=== PATIENT | male | born 1930 | race Caucasian/White ===

== ENCOUNTER 2016-07-11 00:11 | Emergency (ER) | payer MEDICARE, MEDICAID ==
[~2016-07-11] VITALS: Ht 162.6 cm; Wt 74.8 kg
--- NOTE | 2016-07-11 00:50 | NUR ---
PT BIB FAMILY, AMBULATORY TO ER BED 7 PER FAMILY "BP 197/90 AT HOME"; TOOK LOSARTAN AND ATENOLO AT 2130" PT AOX4 FARSI SPEAKING, FAMILY AT BEDSIDE FOR TRASNLATION. RR EVEN AND UNLABORED. NO SOB NOTED. PT DENIES CP. PT NOTED WITH AUDIBLE WHEEZING. PT CONNECTED TO MONITOR AND GOWNED. WAITING FOR MD TOMLINSON.
--- NOTE | 2016-07-11 00:57 | NUR ---
DR. HARMAN AT BEDSIDE FOR EVAL.
[2016-07-11 01:28] LABS: BASOPHILS % (AUTO) 0.4 % (0.0-2.0); EOSINOPHILS # (AUTO) 0.4 /CMM (0.0-0.7); EOSINOPHILS % (AUTO) 3.8 % (0.0-6.0); HEMATOCRIT 40 % (39-51); HEMOGLOBIN 12.9 g/dL (13.5-17.5); LYMPHOCYTES # (AUTO) 3.8 /CMM (0.8-4.8); LYMPHOCYTES % (AUTO) 33.1 % (20.0-44.0); MEAN CORPUSCULAR HEMOGLOBIN 31 PG (26.0-33.0); MEAN CORPUSCULAR HGB CONC 33 g/dl (31.0-36.0); MEAN CORPUSCULAR VOLUME 94 fL (80-96); MONOCYTES % (AUTO) 8.6 % (2.0-12.0); NEUTROPHILS # (AUTO) 6.2 /CMM (1.8-8.9); NEUTROPHILS % (AUTO) 54.1 % (43.0-81.0); PLATELET COUNT (AUTO) 195 /CMM (150-450); RDW COEFFICIENT OF VARIATION 14.7 (11.5-15.0); WHITE BLOOD COUNT (AUTO) 11.5 K/uL (4.3-11.0)
--- NOTE | 2016-07-11 01:30 | NUR ---
XRAY AT BEDSIDE FOR CXR
[2016-07-11 01:38] LABS: CALCIUM, SERUM 8.6 mg/dL (8.5-10.1); CARBON DIOXIDE 30 mmol/L (21-32); CHLORIDE 100 mmol/L (98-107); CREATININE 1.4 mg/dL (0.6-1.3); GLUCOSE 102 mg/dL (74-106); POTASSIUM 5.5 mmol/L (3.5-5.1); SODIUM SERUM 137 mmol/L (136-145); UREA NITROGEN, BLOOD 27 mg/dL (7-18)
[2016-07-11 01:41] LABS: INR 0.96 (0.87-1.13); PROTHROMBIN TIME 10.2 SECS (9.5-12.7)
[2016-07-11 01:46] LABS: TROPONIN I < 0.017 ng/mL (0.00-0.056)
[2016-07-11 01:51] LABS: ALANINE AMINOTRANSFERASE 29 U/L (12-78); ALKALINE PHOSPHATASE 73 U/L (46-116); ASPARTATE AMINOTRANSFERASE 22 U/L (15-37); B-TYPE NATRIURETIC PEPTIDE 599 PG/ML (0-125); BILIRUBIN,DIRECT 0.1 mg/dL (0.0-0.2); BILIRUBIN,TOTAL 0.4 mg/dL (0.2-1.0)
--- NOTE | 2016-07-11 02:31 | NUR ---
DR. HARMAN AT BEDSIDE SPEAKING TO PT AND FAMILY REGARDING RESULTS.
--- NOTE | 2016-07-11 02:43 | NUR ---
IV removed. Catheter intact and site benign. Pressure and 4x4 applied to site. No bleeding noted. Patient discharged to home in stable condition. Written and verbal after care instructions given. Patient verbalizes understanding of instruction. ambulatory with a steady gait with cane, pt w/c out per family request.
[2016-07-11 02:44] VITALS: BP 143/67
== END 2016-07-11 02:45 | disposition home or self-care (01) ==
LOC: ER 00:11
DX: I10 Essential (primary) hypertension (principal); R79.1 Abnormal coagulation profile
CPT/HCPCS: 36415; 71010-TC; 80048-TC; 80076-TC; 83880; 84484-TC; 85025-TC; 85730-TC; A4606; Z7610

== ENCOUNTER 2017-05-03 02:25 | Inpatient (IN) | payer MEDICARE, OTHER ==
[~2017-05-03] VITALS: Ht 160 cm; Wt 70.3 kg
--- NOTE | 2017-05-03 02:41 | NUR ---
PT BB DAUGHTER; COUGH, CONGESTION, SOB X 2 DAYS. PT AOX3 SERBIAN SPEAKING, DAUGHTER AT BEDSIDE TO TRANSLATE. NO SOB NOTED. NAD NOTED. NO NVD AT THIS TIME. PT GOWNED AND PLACED ON MONTIOR. PT DENIES CP AND IS NOT DIAPHORETIC. DR. HARDIN AT BEDSIDE FOREVAL.
[2017-05-03] MEDS ORDERED: IPRATROPIUM NEB FS 0.5 MG/2.5 ML AMPUL.NEB NEB ONE (03:00)
[2017-05-03] MEDS ORDERED: ASPIRIN 81 MG TAB.CHEW PO ONE (03:00)
[2017-05-03] MEDS ORDERED: ALBUTEROL FS 2.5 MG/0.5 ML VIAL.NEB NEB ONE (03:00)
[2017-05-03 03:11] LABS: BASOPHILS % (AUTO) 0.4 % (0.0-2.0); EOSINOPHILS # (AUTO) 0.1 /CMM (0.0-0.7); EOSINOPHILS % (AUTO) 0.7 % (0.0-6.0); HEMATOCRIT 39 % (39-51); HEMOGLOBIN 12.9 g/dL (13.5-17.5); LYMPHOCYTES # (AUTO) 2.1 /CMM (0.8-4.8); LYMPHOCYTES % (AUTO) 22.3 % (20.0-44.0); MEAN CORPUSCULAR HEMOGLOBIN 32 PG (26.0-33.0); MEAN CORPUSCULAR HGB CONC 33 g/dl (31.0-36.0); MEAN CORPUSCULAR VOLUME 95 fL (80-96); MONOCYTES # (AUTO) 1.7 /CMM (0.1-1.30); MONOCYTES % (AUTO) 17.8 % (2.0-12.0); NEUTROPHILS # (AUTO) 5.6 /CMM (1.8-8.9); NEUTROPHILS % (AUTO) 58.8 % (43.0-81.0); PLATELET COUNT (AUTO) 157 /CMM (150-450); RDW COEFFICIENT OF VARIATION 13.8 (11.5-15.0); RED BLOOD CELL COUNT(AUTO) 4.08 MIL/uL (4.5-6.0); WHITE BLOOD COUNT (AUTO) 9.6 K/uL (4.3-11.0)
[2017-05-03] MEDS ORDERED: ASPIRIN 81 MG TAB.CHEW ONE (03:15)
--- NOTE | 2017-05-03 03:17 | NUR ---
CALLED FOR BREATHING TX.
[2017-05-03 03:22] LABS: CALCIUM, SERUM 8.4 mg/dL (8.5-10.1); CARBON DIOXIDE 27 mmol/L (21-32); CHLORIDE 96 mmol/L (98-107); CREATININE 1.5 mg/dL (0.6-1.3); GLUCOSE 99 mg/dL (74-106); POTASSIUM 4.5 mmol/L (3.5-5.1); SODIUM SERUM 132 mmol/L (136-145); UREA NITROGEN, BLOOD 23 mg/dL (7-18)
[2017-05-03] MEDS ORDERED: ALBUTEROL FS 2.5 MG/0.5 ML VIAL.NEB ONE (03:22)
[2017-05-03] MEDS ORDERED: IPRATROPIUM NEB FS 0.5 MG/2.5 ML AMPUL.NEB ONE (03:22)
--- NOTE | 2017-05-03 03:27 | NUR ---
RT AT BEDSIDE FOR BREATHING TX.
[2017-05-03 03:29] LABS: TROPONIN I < 0.017 ng/mL (0.00-0.056)
[2017-05-03 03:37] LABS: ALANINE AMINOTRANSFERASE 26 U/L (12-78); ALBUMIN 3.8 g/dL (3.4-5.0); ALKALINE PHOSPHATASE 58 U/L (46-116); ASPARTATE AMINOTRANSFERASE 18 U/L (15-37); B-TYPE NATRIURETIC PEPTIDE 946 PG/ML (0-125); BILIRUBIN,DIRECT 0.1 mg/dL (0.0-0.2); BILIRUBIN,TOTAL 0.3 mg/dL (0.2-1.0); EOSINOPHILS % (MANUAL) 2 % (0-4); LYMPHOCYTES % (MANUAL) 26 % (16-48); MONOCYTES % (MANUAL) 14 % (0-11.0); NEUTROPHILS % (MANUAL) 58 (42-76); TOTAL PROTEIN, SERUM 8.1 g/dL (6.4-8.2)
--- NOTE | 2017-05-03 03:56 | NUR ---
URINE COLLECTED. CALLED LAB FOR NON DESTRUCTIVE TESTER
[2017-05-03] MEDS ORDERED: FUROSEMIDE 40 MG/4 ML VIAL ONE (03:57)
[2017-05-03] MEDS ORDERED: FUROSEMIDE 40 MG/4 ML VIAL IV ONE (04:00)
[2017-05-03 04:02] LABS: APPEARANCE,URINE CLEAR (CLEAR); BILIRUBIN,URINE NEGATIVE (NEGATIVE); BLOOD, URINE 1+ Ery/uL (NEGATIVE); COLOR,URINE YELLOW (YELLOW); KETONES,URINE NEGATIVE (NEGATIVE); LEUKOCYTE ESTERASE ,URINE NEGATIVE (NEGATIVE); NITRITE, URINE NEGATIVE (NEGATIVE); PH,URINE 5.5 (5.0-8.0); PROTEIN,URINE NEGATIVE (NEGATIVE); UGLUCOSE NEGATIVE (NEGATIVE); UROBILINOGEN,URINE 0.2 EU/dL (0.2)
[2017-05-03 04:12] LABS: BACTERIA,URINE None seen /HPF (None Seen); SQUAMOUS EPITHELIAL CELL,UR Rare /HPF (None Seen); WBC,URINE 0-2 /HPF (0-3)
[2017-05-03] MEDS ORDERED: IPRATROPIUM NEB FS 0.5 MG/2.5 ML AMPUL.NEB NEB PRN (04:30)
[2017-05-03] MEDS ORDERED: ALBUTEROL FS 2.5 MG/0.5 ML VIAL.NEB NEB PRN (04:30)
[2017-05-03] MEDS ORDERED: hydrALAZINE HCL IV 20 MG VIAL IV PRN (04:30)
[2017-05-03] MEDS ORDERED: IV NS 0.9% 1,000 ML IV PRN (04:30)
--- NOTE | 2017-05-03 04:38 | NUR ---
PT ASSIGNED TO [facility] BED 111-2
--- NOTE | 2017-05-03 04:46 | NUR ---
REPORT GIVEN TO KOSTAS MCMAHON FOR BED 111-2
[2017-05-03] MEDS ORDERED: ONDANSETRON HCL/PF 4 MG/2 ML VIAL IVP PRN (05:00)
[2017-05-03] MEDS ORDERED: MAGNESIUM HYDROXIDE 30 ML UDC PO PRN (05:00)
[2017-05-03] MEDS ORDERED: ZOLPIDEM TARTRATE 5 MG TABLET PO PRN (05:00)
[2017-05-03] MEDS ORDERED: HYDROCODONE/APAP 5/325MG 1 EACH TABLET PO PRN (05:00)
[2017-05-03] MEDS ORDERED: Z GUARD REMEDY 2 OZ OINT TP PRN (05:00)
--- NOTE | 2017-05-03 05:17 | NUR ---
PT TRANSFERRED PER ACLS PROTOCOL.
--- NOTE | 2017-05-03 05:30 | NUR ---
PACKING HOUSE SUPERVISOR TELE NOTES, VS 98.8, 78, 22, 116/62, 0/10, 94% 2 2LPM VIA NC.
--- NOTE | 2017-05-03 05:30 | NUR ---
SCALE TECHNICIAN ADMISSION NOTES, RECEIVED PATIENT FROM ER DEPARTMENT VIA STRETCHER ACCOMPANIED BY 2 STAFF, BREATHING EVEN AND UNLABORED, NO S/S OF ACUTE DISTRESS OR DISCOMFORT NOTED AT THIS TIME, ON 2LPM VIA NC SATURATION LEVEL AT 94%, SR IN THE TELE MONITOR, UNDER THE [facility] OF [facility], ADMITTING DIAGNOSES IS CHF, H/O HTN, LEFT THIGH BYPASS, HDL, ABDOMEN SOFT AND NONDISTENDED, AMBULATORY WITH ASSISTANCE, AFEBRILE AT THIS TIME, CONTINENT OF B&B, ALL MEDICATIONS WILL ADMINISTER ORDERED, BED BAD GIVEN UPON ADMISSIONS, SKIN INTACT, REFER TO PICTURES FOR DETAILS, ALL NEEDS PROVIDED, DAUGHTER AND GRAND DAUGHTER AT BEDSIDE, BED LOCKED AND IN LOWEST POSITION, CALL LIGHT W/I REACH, ORIENTED TO ROOM AND CALL LIGHT, WILL CONTINUE TO MONITOR AND ENDORSE CONTINUITY OF CARE TO ONCOMING NURSE.
--- NOTE | 2017-05-03 07:44 | NUR ---
LICENSE ISSUER NOTES RECEIVED PT ON BED SLEEPING. EPISODES OF CONFUSION TRYING TO GET OUT OF BED. ON NASAL CANNULA 2LPM SATURATING WELL. IV ACCESS ON LAC RUNNING WELL. HEAD OF BED ELEVATED. BED ALARM ON. SIDE RAILS UP. CALL LIGHT WITHIN REACH. WILL CONTINUE TO MONITOR PT CLOSELY.
[2017-05-03 08:00] VITALS: BP 134/62
[2017-05-03 08:09] LABS: BASOPHILS % (AUTO) 0.4 % (0.0-2.0); EOSINOPHILS % (AUTO) 0.2 % (0.0-6.0); HEMATOCRIT 37 % (39-51); HEMOGLOBIN 12.5 g/dL (13.5-17.5); LYMPHOCYTES # (AUTO) 2.1 /CMM (0.8-4.8); LYMPHOCYTES % (AUTO) 22.5 % (20.0-44.0); MEAN CORPUSCULAR HEMOGLOBIN 32 PG (26.0-33.0); MEAN CORPUSCULAR HGB CONC 34 g/dl (31.0-36.0); MEAN CORPUSCULAR VOLUME 94 fL (80-96); MONOCYTES # (AUTO) 1.8 /CMM (0.1-1.30); MONOCYTES % (AUTO) 18.9 % (2.0-12.0); NEUTROPHILS # (AUTO) 5.4 /CMM (1.8-8.9); PLATELET COUNT (AUTO) 138 /CMM (150-450); RDW COEFFICIENT OF VARIATION 13.9 (11.5-15.0); RED BLOOD CELL COUNT(AUTO) 3.89 MIL/uL (4.5-6.0); WHITE BLOOD COUNT (AUTO) 9.3 K/uL (4.3-11.0)
[2017-05-03 08:26] LABS: CALCIUM, SERUM 8.4 mg/dL (8.5-10.1); CARBON DIOXIDE 28 mmol/L (21-32); CHLORIDE 96 mmol/L (98-107); CHOLESTEROL 80 mg/dL (<200); CREATININE 1.5 mg/dL (0.6-1.3); GLUCOSE 96 mg/dL (74-106); HDL CHOLESTEROL 48 mg/dL (40-60); LDL 30 mg/dL (0-99); MAGNESIUM 1.9 mg/dL (1.8-2.4); SODIUM SERUM 133 mmol/L (136-145); TRIGLYCERIDES 44 mg/dL (30-150); UREA NITROGEN, BLOOD 23 mg/dL (7-18)
[2017-05-03] MEDS: AZITHROMYCIN 500 MG in IV D5W 250 ML IV SCH (08:52)
[2017-05-03] MEDS: HEPARIN SODIUM, PORCINE 5000 UNITS/1 ML VIAL SQ SCH ×2 (08:53→20:39)
[2017-05-03] MEDS: ACETAMINOPHEN 325 MG TABLET PO PRN ×3 (11:52→23:55)
[2017-05-03 12:00] VITALS: BP 137/68
[2017-05-03 12:37] LABS: BAND % (MANUAL) 4 % (0.0-5.0); LYMPHOCYTES % (MANUAL) 17 % (16-48); MONOCYTES % (MANUAL) 13 % (0-11.0); NEUTROPHILS % (MANUAL) 66 (42-76)
[2017-05-03] MEDS ORDERED: GABA-534 PO (13:29)
[2017-05-03] MEDS ORDERED: ATEN25TA PO (13:29)
[2017-05-03] MEDS ORDERED: ASPI-1152 PO (13:29)
[2017-05-03] MEDS ORDERED: ROSU20TA PO (13:29)
[2017-05-03] MEDS ORDERED: EZET10TA14 PO (13:29)
[2017-05-03] MEDS ORDERED: LOSA50TA21 PO (13:29)
[2017-05-03] MEDS ORDERED: FURO20TA4 PO (13:29)
[2017-05-03 16:00] VITALS: BP 116/60
--- NOTE | 2017-05-03 17:25 | NUR ---
STEM ROLLER NOTES PT AFIB 120S. DOCTOR IRA NOTIFIED.
[2017-05-03] MEDS: FUROSEMIDE 40 MG/4 ML VIAL IV SCH (17:32)
[2017-05-03] MEDS: CEFTRIAXONE 1 G in IV D5W 50 ML IV SCH (17:33)
--- NOTE | 2017-05-03 19:16 | NUR ---
RN NOTES RECEIVED ENDORSEMENT FROM NURSE SCHNEIDER REGARDING STAT EKG, ORDERED SINCE 5PM, STILL NOT DONE. CALLED RESPIRATORY DEPARTMENT TO FOLLOW UP. PER RT DEPARTMENT, DAVID WILL BE NOTIFIED IMMEDIATELY REGARDING EKG ORDER,
--- NOTE | 2017-05-03 19:45 | NUR ---
DATA ADMINISTRATOR NOTES ENDORSE TO ZURDO KENYON. PT ON AFIB 120S DR HAMLIN. MADE AWARE OF IT. PT VITAL SIGNS STABLE, PT SATURATING WELL ON NASAL CANNULA. DUE MEDS GIVEN. HEAD OF BED ELEVATED. SIDE RAILS UP. CALL LIGHT WITHIN REACH. BED ALARM ON. DAUGHTER AT BEDSIDE.
[2017-05-03 20:00] VITALS: BP 100/64
--- NOTE | 2017-05-03 20:15 | NUR ---
RN NOTES EKG DONE, SHOWING AFIB WITH RVR, HR 120s. RESULTS RELAYED TO HERB RUSSELL, WITH ORDER TO CONTINUE HOME MEDICATION ATENOLOL 25MG PO, AND NOTIFY IF HR INCREASES. WILL ADMINISTER PRESCRIBED MEDICATION AND CONTINUE TO CLOSELY MONITOR
[2017-05-03] MEDS: ATENOLOL 25 MG TABLET PO SCH (20:38)
[2017-05-04] VITALS: BP 126/73
--- NOTE | 2017-05-04 | NUR ---
RN NOTES PATIENT SLEEPING IN BED, APPEARS COMFORTABLE. ON PIGMENT GRINDER, STILL READING AFIB, BUT RATE IS CONTROLLED, 80s AT THIS TIME. WILL CONTINUE TO CLOSELY MONITOR
[2017-05-04 04:00] VITALS: BP 101/65
[2017-05-04] MEDS: AZITHROMYCIN 500 MG in IV D5W 250 ML IV SCH (05:43)
--- NOTE | 2017-05-04 07:05 | NUR ---
RN CLOSING NOTES PATIENT RESTING IN BED APPEARS COMFORTABLE. REMAINS AFIB ON DECORATOR CONSULTANT. WILL ENDORSE THE PATIENT TO THE AM SHIFT NURSE FOR CONTINUITY OF CARE
[2017-05-04 08:00] VITALS: BP 93/55
--- NOTE | 2017-05-04 08:00 | NUR ---
FIRE ALARM INSTALLER NOTES RECEIVED PATIENT IN BED SLEEPING, BUT EASILY AROUSED, HE IS ABLE TO MAKE THINGS KNOWN IN HIS [place] LANGUAGE (FARSI) BUT UNDERSTANDS A LITTLE MALTESE WITH EPISODES OF CONFUSION. BREATHING EVEN AND NONLABORED ON 2LPM VIA NC. LEADS INTACT WITH A-FIB 84s. IV SITE INTACT AND PATENT, HEAD OF BED ELEVATED FOR COMFORT. BED ALARM, SIDE RAILS UP AND BED LOCKED. PLACED CALL LIGHT WITHIN REACH. WILL CONTINUE TO MONITOR PATIENT CLOSELY.
[2017-05-04] MEDS: ATENOLOL 25 MG TABLET PO SCH (08:40)
[2017-05-04] MEDS: HEPARIN SODIUM, PORCINE 5000 UNITS/1 ML VIAL SQ SCH (08:42)
[2017-05-04] MEDS: FUROSEMIDE 40 MG/4 ML VIAL IV SCH (08:42)
[2017-05-04 12:00] VITALS: BP 90/55
--- NOTE | 2017-05-04 12:00 | NUR ---
RN NOTES PT STABLE, SUPPORTIVE FAMILY AT THE BEDSIDE, CONTINUE TO MONITOR .
[2017-05-04] MEDS: OSELTAMIVIR PHOSPHATE 75 MG CAPSULE PO SCH (15:07)
[2017-05-04 16:00] VITALS: BP 96/50
[2017-05-04] MEDS: CEFTRIAXONE 1 G in IV D5W 50 ML IV SCH (16:05)
[2017-05-04] MEDS: LACTOBACILLUS RHAMNOSUS GG 1 EACH CAP.SPRINK PO SCH (16:05)
[2017-05-04] MEDS: RIVAROXABAN 15 MG TABLET PO SCH (16:05)
--- NOTE | 2017-05-04 17:32 | NUR ---
RN NOTE CALLED EPIC TO CONNECT WITH MD REGARDING MED RECON ON PATIENT. BUSINESS STRATEGIST ELMER STATED HE PAGED THE MD AND WILL HAVE MD CALL BACK.
--- NOTE | 2017-05-04 18:00 | NUR ---
RN NOTES PT REMAINS THE SAME, ON 2L O2 N/C , RESPIRATION EVEN AND UNLABORED, NO SOB NOTED, SR UP x3, CALL LIGHT WITHIN EASY REACH, BED LOCKED AND IN LOWEST POSITION ,WILL ENDORSE TO MECHANICAL RELIABILITY ENGINEER NURSE FOR MAKAYLA
[2017-05-04 20:00] VITALS: BP 98/55
[2017-05-04] MEDS: METOPROLOL TARTRATE 25 MG TABLET PO SCH (21:00)
[2017-05-05] VITALS (7 sets, daily range): BP systolic 96–119; BP diastolic 60–68
[2017-05-05] MEDS: ACETAMINOPHEN 325 MG TABLET PO PRN (05:02)
[2017-05-05] MEDS: AZITHROMYCIN 250 MG TABLET PO SCH (05:02)
[2017-05-05 06:21] LABS: BASOPHILS % (AUTO) 0.3 % (0.0-2.0); EOSINOPHILS % (AUTO) 0.1 % (0.0-6.0); HEMATOCRIT 40 % (39-51); HEMOGLOBIN 13.5 g/dL (13.5-17.5); LYMPHOCYTES # (AUTO) 3.6 /CMM (0.8-4.8); LYMPHOCYTES % (AUTO) 36.7 % (20.0-44.0); MEAN CORPUSCULAR HEMOGLOBIN 32 PG (26.0-33.0); MEAN CORPUSCULAR HGB CONC 34 g/dl (31.0-36.0); MEAN CORPUSCULAR VOLUME 95 fL (80-96); MONOCYTES # (AUTO) 1.3 /CMM (0.1-1.30); MONOCYTES % (AUTO) 13.5 % (2.0-12.0); NEUTROPHILS # (AUTO) 4.8 /CMM (1.8-8.9); NEUTROPHILS % (AUTO) 49.4 % (43.0-81.0); PLATELET COUNT (AUTO) 150 /CMM (150-450); RDW COEFFICIENT OF VARIATION 14.5 (11.5-15.0); RED BLOOD CELL COUNT(AUTO) 4.18 MIL/uL (4.5-6.0); WHITE BLOOD COUNT (AUTO) 9.7 K/uL (4.3-11.0)
[2017-05-05 06:37] LABS: ALANINE AMINOTRANSFERASE 27 U/L (12-78); ALKALINE PHOSPHATASE 46 U/L (46-116); ASPARTATE AMINOTRANSFERASE 24 U/L (15-37); BILIRUBIN,TOTAL 0.2 mg/dL (0.2-1.0); CALCIUM, SERUM 8.6 mg/dL (8.5-10.1); CARBON DIOXIDE 28 mmol/L (21-32); CHLORIDE 100 mmol/L (98-107); CREATININE 1.9 mg/dL (0.6-1.3); GLUCOSE 99 mg/dL (74-106); MAGNESIUM 2.4 mg/dL (1.8-2.4); PHOSPHORUS 5.3 mg/dL (2.5-4.9); POTASSIUM 3.9 mmol/L (3.5-5.1); SODIUM SERUM 138 mmol/L (136-145); TOTAL PROTEIN, SERUM 7.4 g/dL (6.4-8.2); UREA NITROGEN, BLOOD 56 mg/dL (7-18)
--- NOTE | 2017-05-05 07:12 | NUR ---
RN INITIAL NOTES: REC'D PT AWAKE ON BED, A/O X 3, FARSI SPEAKING. ON O2 AT 2LPM/NC, NO SOB. ON TELEMONITOR, AFIB CONTROLLED. HAS L AC G18, SL, FLUSHING WELL, PATENT & INTACT W/ NO S/SX OF INFECTION/INFILTRATION NOTED. PROVIDED COMFORT & SAFETY MEASURES. BED KEPT LOW & IN LOCKED POS. CALL LIGHT PLACED W/IN REACH. WILL CONTINUE TO MONITOR & ATTEND PT NEEDS.
[2017-05-05] MEDS: LACTOBACILLUS RHAMNOSUS GG 1 EACH CAP.SPRINK PO SCH ×2 (08:45→17:26)
[2017-05-05] MEDS: OSELTAMIVIR PHOSPHATE 75 MG CAPSULE PO SCH ×2 (08:46→17:26)
[2017-05-05] MEDS: METOPROLOL TARTRATE 25 MG TABLET PO SCH ×2 (08:47→20:53)
[2017-05-05] MEDS: CARBIDOPA/LEVODOPA 25/100 MG 1 UDTAB PO SCH ×2 (13:31→17:26)
[2017-05-05] MEDS: CEFTRIAXONE 1 G in IV D5W 50 ML IV SCH (17:26)
[2017-05-05] MEDS: RIVAROXABAN 15 MG TABLET PO SCH (17:26)
--- NOTE | 2017-05-05 19:00 | NUR ---
RN INITIAL NOTES: NO ACUTE CHANGES NOTED W/IN SHIFT. PT TOLERATED O2 AT 2LPM/NC, NO SOB. REMOVED FROM TELEMONITORING ORDERED. NEW IV LINE ON R HAND INSERTED G22, SL, FLUSHING WELL, W/ GOO VENOUS RETURN. KEPT WELL RESTED. NEEDS ATTENDED. BED KEPT LOW & IN LOCKED POS. ISOLATION PREC OBSERVED. CALL LIGHT PLACED W/IN REACH. ENDORSED TO PM RN FOR MAKAYLA.
[2017-05-06 04:00] VITALS: BP 121/82
[2017-05-06] MEDS: AZITHROMYCIN 250 MG TABLET PO SCH (05:11)
[2017-05-06 08:00] VITALS: BP 129/69
[2017-05-06] MEDS: LACTOBACILLUS RHAMNOSUS GG 1 EACH CAP.SPRINK PO SCH (09:03)
[2017-05-06] MEDS: CARBIDOPA/LEVODOPA 25/100 MG 1 UDTAB PO SCH ×2 (09:03→13:40)
[2017-05-06 09:04] VITALS: BP 129/69
[2017-05-06] MEDS: METOPROLOL TARTRATE 25 MG TABLET PO SCH (09:04)
[2017-05-06 09:16] LABS: ALANINE AMINOTRANSFERASE 36 U/L (12-78); ALKALINE PHOSPHATASE 50 U/L (46-116); ASPARTATE AMINOTRANSFERASE 48 U/L (15-37); BILIRUBIN,TOTAL 0.3 mg/dL (0.2-1.0); CALCIUM, SERUM 8.6 mg/dL (8.5-10.1); CARBON DIOXIDE 29 mmol/L (21-32); CHLORIDE 99 mmol/L (98-107); CREATININE 1.7 mg/dL (0.6-1.3); GLUCOSE 106 mg/dL (74-106); MAGNESIUM 2.4 mg/dL (1.8-2.4); PHOSPHORUS 3.7 mg/dL (2.5-4.9); POTASSIUM 3.8 mmol/L (3.5-5.1); SODIUM SERUM 138 mmol/L (136-145); TOTAL PROTEIN, SERUM 7.9 g/dL (6.4-8.2); UREA NITROGEN, BLOOD 52 mg/dL (7-18)
[2017-05-06 09:24] LABS: BASOPHILS % (AUTO) 0.2 % (0.0-2.0); EOSINOPHILS # (AUTO) 0.1 /CMM (0.0-0.7); EOSINOPHILS % (AUTO) 0.6 % (0.0-6.0); HEMATOCRIT 42 % (39-51); HEMOGLOBIN 14.2 g/dL (13.5-17.5); LYMPHOCYTES # (AUTO) 4.2 /CMM (0.8-4.8); LYMPHOCYTES % (AUTO) 46.2 % (20.0-44.0); MEAN CORPUSCULAR HEMOGLOBIN 32 PG (26.0-33.0); MEAN CORPUSCULAR HGB CONC 34 g/dl (31.0-36.0); MEAN CORPUSCULAR VOLUME 95 fL (80-96); MONOCYTES # (AUTO) 1.3 /CMM (0.1-1.30); MONOCYTES % (AUTO) 14.2 % (2.0-12.0); NEUTROPHILS # (AUTO) 3.5 /CMM (1.8-8.9); NEUTROPHILS % (AUTO) 38.8 % (43.0-81.0); PLATELET COUNT (AUTO) 169 /CMM (150-450); RDW COEFFICIENT OF VARIATION 14.4 (11.5-15.0); RED BLOOD CELL COUNT(AUTO) 4.44 MIL/uL (4.5-6.0)
[2017-05-06] MEDS: OSELTAMIVIR PHOSPHATE 75 MG CAPSULE PO SCH (10:21)
--- NOTE | 2017-05-06 10:24 | NUR ---
RN NOTES: TAMIFLU ADMINISTERED NOW. UNABLE TO SCAN EARLIER. RACHELLE FROM PHARMACY NOTIFIED
--- NOTE | 2017-05-06 14:44 | NUR ---
RN NOTES: PER DR ROTH. PATIENT TO BE DISCHARGED TODAY TO [facility]
--- NOTE | 2017-05-06 17:10 | NUR ---
RN NOTES: PATIENT DISCHARGED TO [facility] PER DR ROTH'S ORDERS. PATIENT STABLE. VS WNL. NO SIGNS OF DISTRESS. DENIED DIFFICULTY BREATHING AND DENIED CHEST PAIN. PATIENT ON 2 L NASAL CANNULA. TOLERATING WELL. PATIENT REMOVED IV SITE DURING AM ROUNDS. ANOTHER ONE WAS RESTARTED ON RIGHT AC. IV REMOVED BY MYSELF PRIOR TO DISCHARGE. PATIENT WAS KEPT SAFE WITH ALL SAFETY PRECUATIONS. PATIENT WAS KEPT CLEAN AND DRY. VOIDED X3, 1 BM. PATIENT REFUSED SKIN PICTURES, AGREED ONLY TO HEEL PICTURES. TAKEN AND PLACED IN CHART. FAMILY MEMBERS AWARE OF DISCAHRGE. SPOKE TO IVAN AND GAVE HER REPORT. NO BELONGINGS WERE WITH PATIENT. PATIENT LEFT VIA AMBULANCE STABLE
== END 2017-05-06 17:22 | DRG 193 ==
LOC: ER 02:28 → TELE1 05:00 → MEDSG1 05-06 01:56
PROVIDERS: ADMIT Nurse Practitioner Acute Care; ATTEND Nurse Practitioner Acute Care
DX: J10.08 Influenza due to other identified influenza virus with other specified pneumonia (principal); N17.0 Acute kidney failure with tubular necrosis; J96.00 Acute respiratory failure, unspecified whether with hypoxia or hypercapnia; I50.33 Acute on chronic diastolic (congestive) heart failure; I13.0 Hypertensive heart and chronic kidney disease with heart failure and stage 1 through stage 4 chronic kidney disease, or unspecified chronic kidney disease; E87.1 Hypo-osmolality and hyponatremia; J15.9 Unspecified bacterial pneumonia; I48.91 Unspecified atrial fibrillation; G20 Parkinson's disease; I11.0 Hypertensive heart disease with heart failure; N18.9 Chronic kidney disease, unspecified; E66.9 Obesity, unspecified; E78.5 Hyperlipidemia, unspecified; Z68.27 Body mass index [BMI] 27.0-27.9, adult
CPT/HCPCS: 36415; 70450-TC; 71045-TC; 76770-TC; 80048-TC; 80053-TC; 80061-TC; 80076-TC; 81000-TC; 83605-TC; 83735-TC; 83880; 84100-TC; 84484-TC; 85025-TC; 85730-TC; 87040-TC; 87081-TC; 87400; 93307-TC; 97110-TC; 97116-TC; 97530-TC; A4606; J0456; J0696; J1644; J1940; J7030; J7050; J7060; Z7610

== ENCOUNTER 2017-05-25 13:11 | Outpatient (CLI) | payer MEDICARE, OTHER ==
[~2017-05-25 13:11] MED LIST: ASPI-1152 PO; ATEN25TA PO; EZET10TA14 PO; FURO20TA4 PO; GABA-534 PO; LOSA50TA21 PO; ROSU20TA PO
[2017-05-25 13:18] VITALS: BP 132/82
== END 2017-05-25 23:59 | disposition home or self-care (01) ==
LOC: MSC 13:11
PROVIDERS: ATTEND Internal Medicine
DX: J18.9 Pneumonia, unspecified organism (principal); I11.0 Hypertensive heart disease with heart failure; I50.32 Chronic diastolic (congestive) heart failure; E78.5 Hyperlipidemia, unspecified; E66.9 Obesity, unspecified; G62.9 Polyneuropathy, unspecified; Z79.82 Long term (current) use of aspirin

== ENCOUNTER 2017-07-06 08:18 | Outpatient (CLI) | payer MEDICARE, OTHER ==
[2017-07-06 12:12] VITALS: BP 136/74
== END 2017-07-06 23:59 | disposition home or self-care (01) ==
LOC: MSC 08:18
PROVIDERS: ATTEND Internal Medicine
DX: Z09 Encounter for follow-up examination after completed treatment for conditions other than malignant neoplasm (principal); I48.0 Paroxysmal atrial fibrillation; Z79.01 Long term (current) use of anticoagulants; I11.0 Hypertensive heart disease with heart failure; I50.32 Chronic diastolic (congestive) heart failure; E78.5 Hyperlipidemia, unspecified; E66.9 Obesity, unspecified; G62.9 Polyneuropathy, unspecified; G20 Parkinson's disease

== ENCOUNTER 2017-07-28 09:37 | Outpatient (CLI) | payer MEDICARE, OTHER ==
[2017-07-28 10:45] LABS: ALANINE AMINOTRANSFERASE 24 U/L (12-78); ALBUMIN 3.6 g/dL (3.4-5.0); ALKALINE PHOSPHATASE 45 U/L (46-116); ASPARTATE AMINOTRANSFERASE 26 U/L (15-37); BILIRUBIN,DIRECT 0.2 mg/dL (0.0-0.2); BILIRUBIN,TOTAL 0.8 mg/dL (0.2-1.0); CALCIUM, SERUM 8.7 mg/dL (8.5-10.1); CARBON DIOXIDE 28 mmol/L (21-32); CHLORIDE 107 mmol/L (98-107); CREATININE 1.5 mg/dL (0.6-1.3); GLUCOSE 96 mg/dL (74-106); POTASSIUM 4.5 mmol/L (3.5-5.1); SODIUM SERUM 142 mmol/L (136-145); TOTAL PROTEIN, SERUM 7.4 g/dL (6.4-8.2); UREA NITROGEN, BLOOD 30 mg/dL (7-18)
[2017-07-28 10:52] LABS: CHOLESTEROL 86 mg/dL (<200); HDL CHOLESTEROL 55 mg/dL (40-60); LDL 32 mg/dL (0-99); TRIGLYCERIDES 45 mg/dL (30-150)
[2017-07-28 11:31] LABS: BASOPHILS % (AUTO) 0.2 % (0.0-2.0); EOSINOPHILS % (AUTO) 2.3 % (0.0-6.0); HEMATOCRIT 38 % (39-51); HEMOGLOBIN 12.9 g/dL (13.5-17.5); LYMPHOCYTES # (AUTO) 4.5 /CMM (0.8-4.8); LYMPHOCYTES % (AUTO) 42.3 % (20.0-44.0); MEAN CORPUSCULAR HEMOGLOBIN 32 PG (26.0-33.0); MEAN CORPUSCULAR HGB CONC 34 g/dl (31.0-36.0); MEAN CORPUSCULAR VOLUME 95 fL (80-96); MONOCYTES # (AUTO) 0.9 /CMM (0.1-1.30); MONOCYTES % (AUTO) 8.5 % (2.0-12.0); NEUTROPHILS # (AUTO) 5.1 /CMM (1.8-8.9); NEUTROPHILS % (AUTO) 46.7 % (43.0-81.0); PLATELET COUNT (AUTO) 177 /CMM (150-450); RDW COEFFICIENT OF VARIATION 13.1 (11.5-15.0); RED BLOOD CELL COUNT(AUTO) 4.05 MIL/uL (4.5-6.0); WHITE BLOOD COUNT (AUTO) 10.7 K/uL (4.3-11.0)
== END 2017-07-28 23:59 | disposition home or self-care (01) ==
LOC: LAB 09:37
PROVIDERS: ATTEND Internal Medicine
DX: Z00.00 Encounter for general adult medical examination without abnormal findings (principal)
CPT/HCPCS: 36415; 80048-TC; 80061-TC; 80076-TC; 84443-TC; 85025-TC

== ENCOUNTER 2017-08-03 11:48 | Outpatient (CLI) | payer MEDICARE, OTHER ==
[2017-08-03 11:59] VITALS: BP 117/68
== END 2017-08-03 23:59 | disposition home or self-care (01) ==
LOC: MSC 11:48
PROVIDERS: ATTEND Internal Medicine
DX: Z09 Encounter for follow-up examination after completed treatment for conditions other than malignant neoplasm (principal); I48.0 Paroxysmal atrial fibrillation; Z79.01 Long term (current) use of anticoagulants; I11.0 Hypertensive heart disease with heart failure; I50.32 Chronic diastolic (congestive) heart failure; E78.5 Hyperlipidemia, unspecified; E66.9 Obesity, unspecified; G62.9 Polyneuropathy, unspecified; G20 Parkinson's disease

== ENCOUNTER 2018-05-09 11:57 | Outpatient (CLI) | payer MEDICARE, OTHER ==
[~2018-05-09 11:57] MED LIST changes: -LOSA50TA21 PO; +LOSA50TA39 PO; -ROSU20TA PO; +ROSU20TA2 PO
[2018-05-09 12:34] VITALS: BP 132/76
== END 2018-05-09 23:59 | disposition home or self-care (01) ==
LOC: MSC 11:57
PROVIDERS: ATTEND Nurse Practitioner Acute Care
DX: I48.0 Paroxysmal atrial fibrillation (principal); I11.0 Hypertensive heart disease with heart failure; I50.32 Chronic diastolic (congestive) heart failure; E78.5 Hyperlipidemia, unspecified; Z79.01 Long term (current) use of anticoagulants; E66.9 Obesity, unspecified; G20 Parkinson's disease; E66.3 Overweight; R41.0 Disorientation, unspecified; M79.2 Neuralgia and neuritis, unspecified

== ENCOUNTER 2018-05-09 12:37 | Outpatient (CLI) | payer MEDICARE, OTHER ==
[2018-05-09 13:45] LABS: BASOPHILS % (AUTO) 0.5 % (0.0-2.0); EOSINOPHILS % (AUTO) 1.4 % (0.0-6.0); HEMATOCRIT 40 % (39-51); HEMOGLOBIN 13.4 g/dL (13.5-17.5); LYMPHOCYTES # (AUTO) 2.3 /CMM (0.8-4.8); LYMPHOCYTES % (AUTO) 27.1 % (20.0-44.0); MEAN CORPUSCULAR HGB CONC 33 g/dl (31.0-36.0); MEAN CORPUSCULAR VOLUME 99 fL (80-96); MONOCYTES % (AUTO) 11.5 % (2.0-12.0); NEUTROPHILS # (AUTO) 5.1 /CMM (1.8-8.9); NEUTROPHILS % (AUTO) 59.5 % (43.0-81.0); PLATELET COUNT (AUTO) 173 /CMM (150-450); RED BLOOD CELL COUNT(AUTO) 4.08 MIL/uL (4.5-6.0); WHITE BLOOD COUNT (AUTO) 8.6 K/uL (4.3-11.0)
[2018-05-09 14:01] LABS: APPEARANCE,URINE CLEAR (CLEAR); BILIRUBIN,URINE NEGATIVE (NEGATIVE); BLOOD, URINE TRACE Ery/uL (NEGATIVE); CALCIUM, SERUM 9.1 mg/dL (8.5-10.1); CARBON DIOXIDE 30 mmol/L (21-32); CHLORIDE 104 mmol/L (98-107); COLOR,URINE YELLOW (YELLOW); CREATININE 1.5 mg/dL (0.6-1.3); GLUCOSE 98 mg/dL (74-106); KETONES,URINE NEGATIVE (NEGATIVE); LEUKOCYTE ESTERASE ,URINE NEGATIVE (NEGATIVE); NITRITE, URINE NEGATIVE (NEGATIVE); POTASSIUM 4.7 mmol/L (3.5-5.1); PROTEIN,URINE NEGATIVE (NEGATIVE); SODIUM SERUM 138 mmol/L (136-145); UGLUCOSE NEGATIVE (NEGATIVE); UREA NITROGEN, BLOOD 33 mg/dL (7-18); UROBILINOGEN,URINE 0.2 EU/dL (0.2)
[2018-05-09 14:15] LABS: CHOLESTEROL 89 mg/dL (<200); HDL CHOLESTEROL 48 mg/dL (40-60); LDL 38 mg/dL (0-99); THYROID STIMULATING HORMONE 1.106 uIU/mL (0.358-3.74); TRIGLYCERIDES 88 mg/dL (30-150)
[2018-05-09 14:23] LABS: SQUAMOUS EPITHELIAL CELL,UR Rare /HPF (None Seen)
[2018-05-09 14:24] LABS: BACTERIA,URINE None seen /HPF (None Seen); RBC,URINE 0-2 /HPF (0-2); WBC,URINE 0-2 /HPF (0-3)
== END 2018-05-09 23:59 | disposition home or self-care (01) ==
LOC: LAB 12:37
PROVIDERS: ATTEND Nurse Practitioner Acute Care
DX: I13.0 Hypertensive heart and chronic kidney disease with heart failure and stage 1 through stage 4 chronic kidney disease, or unspecified chronic kidney disease (principal); N18.9 Chronic kidney disease, unspecified; I50.9 Heart failure, unspecified
CPT/HCPCS: 36415; 80048-TC; 80061-TC; 81000-TC; 84443-TC; 85025-TC

== ENCOUNTER 2018-08-08 12:23 | Outpatient (CLI) | payer MEDICARE, OTHER ==
[2018-08-08 12:25] VITALS: BP 115/68
== END 2018-08-08 23:59 | disposition home or self-care (01) ==
LOC: MSC 12:23
PROVIDERS: ATTEND Nurse Practitioner Acute Care
DX: I48.0 Paroxysmal atrial fibrillation (principal); Z79.01 Long term (current) use of anticoagulants; I11.0 Hypertensive heart disease with heart failure; I50.32 Chronic diastolic (congestive) heart failure; E78.5 Hyperlipidemia, unspecified; E66.9 Obesity, unspecified; M79.2 Neuralgia and neuritis, unspecified; G20 Parkinson's disease; R53.1 Weakness

== ENCOUNTER 2018-11-08 13:02 | Outpatient (CLI) | payer MEDICARE, OTHER ==
[~2018-11-08] VITALS: Ht 160 cm; Wt 74.4 kg
[~2018-11-08 13:02] MED LIST changes: -EZET10TA14 PO; +EZET10TA16 PO
[2018-11-08] MEDS ORDERED: RIVA10TA PO (13:15)
[2018-11-08 13:22] VITALS: BP 122/81
== END 2018-11-08 23:59 | disposition home or self-care (01) ==
LOC: MSC 13:02
PROVIDERS: ATTEND Internal Medicine
DX: I13.0 Hypertensive heart and chronic kidney disease with heart failure and stage 1 through stage 4 chronic kidney disease, or unspecified chronic kidney disease (principal); N18.9 Chronic kidney disease, unspecified; I50.32 Chronic diastolic (congestive) heart failure; I48.0 Paroxysmal atrial fibrillation; Z79.01 Long term (current) use of anticoagulants; E78.5 Hyperlipidemia, unspecified; E66.9 Obesity, unspecified; M79.2 Neuralgia and neuritis, unspecified; G20 Parkinson's disease; R53.1 Weakness

== ENCOUNTER 2019-01-31 09:23 | Outpatient (CLI) | payer MEDICARE, OTHER ==
[~2019-01-31 09:23] MED LIST changes: -EZET10TA16 PO; +RIVA10TA PO
[2019-01-31 10:08] LABS: BASOPHILS # (AUTO) 0.1 /CMM (0.0-0.2); BASOPHILS % (AUTO) 0.7 % (0.0-2.0); EOSINOPHILS % (AUTO) 2.5 % (0.0-6.0); HEMATOCRIT 43 % (39-51); HEMOGLOBIN 13.9 g/dL (13.5-17.5); LYMPHOCYTES # (AUTO) 3.7 /CMM (0.8-4.8); LYMPHOCYTES % (AUTO) 38.7 % (20.0-44.0); MEAN CORPUSCULAR HGB CONC 33 g/dl (31.0-36.0); MEAN CORPUSCULAR VOLUME 99 fL (80-96); MONOCYTES # (AUTO) 0.9 /CMM (0.1-1.30); NEUTROPHILS # (AUTO) 4.6 /CMM (1.8-8.9); NEUTROPHILS % (AUTO) 49.1 % (43.0-81.0); PLATELET COUNT (AUTO) 161 /CMM (150-450); RED BLOOD CELL COUNT(AUTO) 4.28 MIL/uL (4.5-6.0); WHITE BLOOD COUNT (AUTO) 9.5 K/uL (4.3-11.0)
[2019-01-31 10:18] LABS: IRON, SERUM 117 ug/dl (50-175); TOTAL IRON BINDING CAPACITY 271 ug/dl (250-450)
[2019-01-31 10:21] LABS: ALANINE AMINOTRANSFERASE 16 U/L (12-78); ALBUMIN 3.7 g/dL (3.4-5.0); ALKALINE PHOSPHATASE 71 U/L (46-116); ASPARTATE AMINOTRANSFERASE 12 U/L (15-37); BILIRUBIN,TOTAL 0.9 mg/dL (0.2-1.0); CALCIUM, SERUM 8.9 mg/dL (8.5-10.1); CARBON DIOXIDE 32 mmol/L (21-32); CHLORIDE 105 mmol/L (98-107); CREATININE 1.6 mg/dL (0.6-1.3); GLUCOSE 105 mg/dL (74-106); POTASSIUM 4.6 mmol/L (3.5-5.1); SODIUM SERUM 144 mmol/L (136-145); TOTAL PROTEIN, SERUM 7.6 g/dL (6.4-8.2); UREA NITROGEN, BLOOD 32 mg/dL (7-18)
[2019-01-31 10:32] LABS: FERRITIN 184 ng/mL (8-388); PROSTATE SPECIFIC ANTIGEN SCR 3.03 ng/mL (0.00-4.00); THYROID STIMULATING HORMONE 1.148 uIU/mL (0.358-3.74)
== END 2019-01-31 23:59 | disposition home or self-care (01) ==
LOC: LAB 09:23
PROVIDERS: ATTEND Internal Medicine
DX: Z00.00 Encounter for general adult medical examination without abnormal findings (principal); I13.0 Hypertensive heart and chronic kidney disease with heart failure and stage 1 through stage 4 chronic kidney disease, or unspecified chronic kidney disease; N18.9 Chronic kidney disease, unspecified; I50.9 Heart failure, unspecified; E78.00 Pure hypercholesterolemia, unspecified
CPT/HCPCS: 36415; 80053-TC; 82728-TC; 83540-TC; 84153-TC; 84443-TC; 85025-TC

== ENCOUNTER 2019-02-28 12:57 | Outpatient (CLI) | payer MEDICARE, OTHER ==
[2019-02-28 13:00] VITALS: BP 109/69
[2019-02-28 13:10] VITALS: BP 113/72
== END 2019-02-28 23:59 | disposition home or self-care (01) ==
LOC: MSC 12:57
PROVIDERS: ATTEND Internal Medicine
DX: G62.9 Polyneuropathy, unspecified (principal); R60.0 Localized edema; I13.0 Hypertensive heart and chronic kidney disease with heart failure and stage 1 through stage 4 chronic kidney disease, or unspecified chronic kidney disease; N18.9 Chronic kidney disease, unspecified; I50.32 Chronic diastolic (congestive) heart failure; I48.0 Paroxysmal atrial fibrillation; Z79.01 Long term (current) use of anticoagulants; E78.5 Hyperlipidemia, unspecified; E66.9 Obesity, unspecified; G20 Parkinson's disease; R53.1 Weakness; Z79.899 Other long term (current) drug therapy

== ENCOUNTER 2019-05-09 11:21 | Outpatient (CLI) | payer MEDICARE, OTHER | END 2019-05-09 23:59 | disposition home or self-care (01) | LOC: MSC 11:21 | PROVIDERS: ATTEND Internal Medicine | DX: K40.90 Unilateral inguinal hernia, without obstruction or gangrene, not specified as recurrent (principal); I13.0 Hypertensive heart and chronic kidney disease with heart failure and stage 1 through stage 4 chronic kidney disease, or unspecified chronic kidney disease; I50.32 Chronic diastolic (congestive) heart failure; N18.9 Chronic kidney disease, unspecified; I48.0 Paroxysmal atrial fibrillation; Z79.01 Long term (current) use of anticoagulants; H26.9 Unspecified cataract; E66.9 Obesity, unspecified; E78.5 Hyperlipidemia, unspecified; F03.90 Unspecified dementia, unspecified severity, without behavioral disturbance, psychotic disturbance, mood disturbance, and anxiety; G20 Parkinson's disease; Z79.899 Other long term (current) drug therapy ==